=== PATIENT | female | born 1995 | race Caucasian/White ===

== ENCOUNTER 2018-02-08 15:25 | Emergency (ER) | payer SELFPAY ==
[2018-02-08] MEDS ORDERED: 0.9 % SODIUM CHLORIDE 1,000 ML IV ONE (15:52)
--- NOTE | 2018-02-08 15:52 | ED Physician Documentation ---
Abdominal Pain - HISTORIAN Historian: patient - HPI Stated Complaint: LLQ abdominal pain Chief Complaint: Flank Pain Onset: hours (3) Duration: constant Timing: still present Context: denies: out of country travel, bad food, recent trauma Severity: moderate Quality: pain, dull, cramping, sharp Associated Symptoms: chills, nausea, other (Normal BM today ). denies: fever, vomiting, diarrhea Exacerbated by: movements, walking Relieved by: nothing Further Comments: yes (She reports that she started to have LLQ pain at around 1 pm and she notes a constant sharp stabbing pain that is LLQ that wraps around to her back. she has some urinary urgency - denies any burning. No visable blood in urine. No fever she has had chills. Nausea with no vomiting) - ROS CONST: no problems GI/: denies: constipation - SOCIAL HX Smoking History: non-smoker Alcohol Use: none Drug Use: none - FAMILY HX Family History: none - PAST HX Past History: none Ischemic Bowel Risk Factors: none Surgeries/Procedures: none Immunizations: UTD - REVIEWED ASSESSMENTS Nursing Assessment Reviewed: Yes Vitals Reviewed: Yes <Irma Wayne - Last Filed: 02/08/18 16:42> - HPI Further Comments: yes - PAST HX Surgeries/Procedures: appendectomy, other (spinal fusion thoracic back) <Constantino Kohli - Last Filed: 02/08/18 19:54> - PAST HX Home Medications: Ambulatory Orders Medication Instructions Recorded NK 01/27/16 Allergies/Adverse Reactions: Allergies Allergy/AdvReac Type Severity Reaction Status Date / Time No Known Allergies Allergy Verified 02/08/18 16:10 - VITAL SIGNS Vital Signs: Vital Signs Temp Pulse Resp BP Pulse Ox 97.2 F L 80 16 125/85 100 02/08/18 15:30 02/08/18 18:33 02/08/18 18:33 02/08/18 18:33 02/08/18 15:30 Progress <Irma Wayne - Last Filed: 02/08/18 16:42> <Constantino Kohli - Last Filed: 02/08/18 19:54> - Progress Progress: 1640: discussed results and she states she is still having pain. No pain with palpation. No nausea further DG (Irma Wayne) 17:44 When reviewing patient medication history that is available on line she got 15 hydrocodone, ondansteron and cephelexin from ED provider in [place] on February 03. She denies to me that she has had any recent medical problems or that she has seen a medical provider recently. She has no primary care provider. With history of chills, hematuria, an elevated WBC count, mild CVA tenderness on the left and pain in the flank area I am concerned that she might have a UTI or possible early polynephritis. Patient will be started on Bactrim DS and was advised to get established with PCP in [place] for further follow-up Post second fentanyl dose pain was improved but not completely gone. (Constantino Kohli) - Lab Results Lab Results: Lab Results 02/08/18 02/08/18 02/08/18 15:54 15:54 15:47 WBC 16.80 K/ul H K/ul (4.00-12.00) RBC 4.98 M/ul M/ul (3.90-5.20) Hgb 16.2 g/dL H g/dL (12.0-16.0) Hct 49.0 % H % (34.5-46.5) MCV 98.0 fl fl (80.0-100.0) MCH 32.6 pg pg (28.0-34.0) MCHC 33.1 g/dL g/dL (30.0-36.0) RDW 10.7 % L % (11.3-14.3) Plt Count 357 K/mm3 K/mm3 (130-400) Neut % (Auto) 75.0 % % (39.0-79.0) Lymph % (Auto) 15.9 % L % (16.0-50.0) [place] % (Auto) 7.2 % % (0.0-11.0) Eos % (Auto) 1.1 % % (0.0-6.8) Baso % (Auto) 0.8 (0.0-1.5) Neut # (Auto) 12.6 # k/uL H # k/uL (1.4-7.7) Lymph # (Auto) 2.7 # k/uL # k/uL (0.6-4.0) Blair # (Auto) 1.2 # k/uL H # k/uL (0.0-0.9) Eos # (Auto) 0.2 # k/uL # k/uL (0.0-0.6) Baso # (Auto) 0.1 # k/uL # k/uL (0.0-0.5) Sodium 144 mmol/L mmol/L (136-145) Potassium 3.7 mmol/L mmol/L (3.5-5.1) Chloride 103 mmol/L mmol/L (98-107) Carbon Dioxide 25 mmol/L mmol/L (22-30) BUN 15 mg/dL mg/dL (7-17) Creatinine 0.60 mg/dL mg/dL (0.52-1.04) Estimated Creat Clear 313 Est GFR ( Amer) > 60 (60 - ) Est GFR (Non-Af Amer) > 60 (60 - ) Glucose 108 mg/dL H mg/dL (74-106) Calcium 8.9 mg/dL mg/dL (8.4-10.2) Total Bilirubin 1.0 mg/dL mg/dL (0.2-1.3) AST 54 U/L H U/L (15-46) ALT 58 U/L U/L (13-69) Alkaline Phosphatase 86 U/L U/L (38-126) Total Protein 8.9 g/dL H g/dL (6.3-8.2) Albumin 4.6 g/dL g/dL (3.5-5.0) Urine Color Red (YELLOW) Urine Appearance Cloudy H (CLEAR) Urine pH 5.5 (5.0 - 8.0) Ur Specific [place] >=1.030 H (1.010-1.030) Urine Protein 1+ mg/dL H mg/dL (NEGATIVE) Urine Ketones Negative mg/dL mg/dL (NEGATIVE) Urine Occult Blood 3+ H (NEGATIVE) Urine Nitrite Negative (NEGATIVE) Urine Bilirubin 1+ H (NEGATIVE) Urine Urobilinogen 0.2 Eu Eu (0.2-1.0) Ur Leukocyte Esterase Negative (NEGATIVE) Urine Glucose Negative mg/dL mg/dL (NEGATIVE) Urine HCG, Qual Negative (NEGATIVE) - Orders Orders: ED Orders Category Date Time Status IV Started NOW Care 02/08/18 15:[address] ABD & PELVIS W/O CON Stat Exams 02/08/18 Completed CBC/PLATELET/DIFF Stat Lab 02/08/18 15:54 Completed CMP Stat Lab 02/08/18 15:54 Completed UA MACRO DIP ONLY Routine Lab 02/08/18 15:47 Completed URINE CULTURE Routine Lab 02/08/18 17:41 Ordered URINE HCG Routine Lab 02/08/18 15:47 Completed 0.9 % Sodium Chloride [Normal Saline] 1,000 ml Med 02/08/18 15:52 Discontinued IV NOW Ketorolac Tromethamine [Toradol] Med 02/08/18 15:53 Discontinued 30 mg IVP NOW ONE Ondansetron HCl/Pf [Zofran 4 mg/2 ml] Med 02/08/18 15:53 Discontinued 4 mg IVP NOW ONE Sulfamethoxazole/Trimethoprim [Bactrim Ds] Med 02/08/18 17:40 Discontinued 1 each PO NOW ONE fentaNYL CITRATE/PF [Duragesic] Med 02/08/18 16:40 Discontinued 50 mcg IVP NOW ONE fentaNYL CITRATE/PF [Duragesic] Med 02/08/18 17:39 Discontinued 50 mcg IVP NOW ONE Abdominal Pain Physical Exam - Physical Exam General Appearance: alert, mild distress EENT: eye inspection normal, no signs of dehydration NECK: normal inspection RESPIRATORY: no resp distress, chest non-tender, breath sounds normal CVS: reg rate & rhythm, heart sounds normal, equal pulses ABDOMEN: soft, normal bowel sounds, no distension BACK: normal inspection, CVA tenderness (L) SKIN: warm/dry, normal color EXTREMITIES: non-tender, normal range of motion, no evidence of injury, no edema NEURO: oriented X3, CN's nml as tested, motor nml, sensation nml, mood/affect nml <Irma Wayne - Last Filed: 02/08/18 16:42> - Physical Exam ABDOMEN: tenderness (LLQ area, periumbilicl area. No masses noted. ), rebound, distended. No: guarding BACK: CVA tenderness (L) (mild) <Constantino Kohli - Last Filed: 02/08/18 19:54> - Physical Exam Vital Signs: Vital Signs Temp Pulse Resp BP Pulse Ox 97.2 F L 80 16 125/85 100 02/08/18 15:30 02/08/18 18:33 02/08/18 18:33 02/08/18 18:33 02/08/18 15:30 Discharge <Irma Wayne - Last Filed: 02/08/18 16:42> Decision to Admit: NO Date of Decison to Admit: 02/08/18 Decision Time: 17:50 <Constantino Kohli - Last Filed: 02/08/18 19:54> Clincal Impression: Abdominal pain Qualifiers: Abdominal location: left lower quadrant Qualified Code(s): R10.32 - Left lower quadrant pain Referrals: Primary Doctor,No [Primary Care Provider] - 2 Days Additional Instructions: It is important to get established with a primary care provider in your local area. Drink a lot of fluids over the next several days. Take Bactrim DS twice a day for the next 7 days. Take Diclofenac 50mg twice a day as needed for pain. If you start running a fever, have some hard chills or increasing pain to see your primary care provider or return to the ED. Condition: Stable Disposition: 01 HOME, SELF-CARE
[2018-02-08] MEDS ORDERED: KETOROLAC TROMETHAMINE 30 MG/1ML VIAL IVP ONE (15:53)
[2018-02-08] MEDS ORDERED: ONDANSETRON HCL/PF 4 MG/ 2ML VIAL IVP ONE (15:53)
[2018-02-08 16:08] LABS: BASOPHILS % 0.8 (0.0-1.5); EOSINOPHILS % 1.1 % (0.0-6.8); MEAN CORPUSCULAR HEMOGLOBIN 32.6 pg (28.0-34.0); MONOCYTES % 7.2 % (0.0-11.0); NEUTROPHILS # 12.6 # k/uL (1.4-7.7)
[2018-02-08 16:18] LABS: eGFR (Non-African) > 60
--- NOTE | 2018-02-08 16:35 | Diagnostic Imaging Report ---
RAMA PHAN [facility] [id number] [facility] [address] [place], [place]. [address] Report Submission Date: Feb 08, 2018 4:31:48 PM ESCAPEMENT MATCHER Patient Study Name: JULIETTE MIMS Date: Feb 08, 2018 4:06:52 PM ESCAPEMENT MATCHER Modality Type: CT Gender: F Description: CT ABD PELVIS W/O CO : 93 Institution: [facility] Physician: RAMA PHAN CT ABDOMEN AND PELVIS WITHOUT CONTRAST HISTORY: Severe left-sided abdominal pain with nausea. Blood in urine. TECHNIQUE: Helically acquired images were obtained from the hemidiaphragms to the pelvic floor without IV contrast using a stone protocol. FINDINGS: There is extensive multilevel posterior fusion of the visualized thoracic and upper lumbar spine. There is vacuum disc phenomenon at several levels of the thoracic spine. Multilevel small Schmorl's nodes are present. There is mild volume loss involving several vertebral bodies. These findings are most suggestive of Scheuermann's disease in this young patient. There is a small metallic appearing density near the tip of the cecum, perhaps relating to prior appendectomy. There has been a cholecystectomy. The liver, spleen, adrenal glands and pancreas appear normal. 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 The kidneys are unremarkable. There is no hydronephrosis. There are no intrarenal stones. There are no ureteral stones. The abdominal aorta is normal in caliber. Small and large bowel loops are normal in caliber. The uterus and ovaries are unremarkable. There is no free fluid in the abdomen or pelvis. There is a phlebolith in the left pelvis. Lung bases are clear. No osseous abnormalities are noted. Impression: There has been extensive multilevel posterior fusion of the visualized thoracic spine and upper lumbar spine. Findings with regard to the visualized spine are most consistent with the sequelae of Scheuermann's disease as detailed in the body of the report. Status post cholecystectomy. No renal or ureteral stones. Probable appendectomy. Please correlate with the patient's clinical history. No source for left-sided pain is identified. Electronically signed on Feb 08, 2018 4:31:48 PM ESCAPEMENT MATCHER by: Hannah GARCIA
[2018-02-08] MEDS ORDERED: fentaNYL CITRATE/PF 100 MCG/ 2ML AMP IVP ONE ×2 (16:40→17:39)
[2018-02-08 17:06] LABS: APPEARANCE,URINE CLOUDY (CLEAR); COLOR,URINE RED (YELLOW); OCCULT BLOOD,URINE 3+ (NEGATIVE); PH URINE 5.5 (5.0 - 8.0); URINE HCG NEGATIVE (NEGATIVE); UROBILINOGEN URINE 0.2 Eu (0.2-1.0)
[2018-02-08] MEDS ORDERED: SULFAMETHOXAZOLE/TRIMETHOPRIM 1 EACH TABLET PO ONE (17:40)
[2018-02-08 18:35] VITALS: BP 125/85
== END 2018-02-08 18:33 | disposition home or self-care (01) ==
LOC: ED 15:25
DX: R10.32 Left lower quadrant pain (principal); Z32.02 Encounter for pregnancy test, result negative
CPT/HCPCS: 36415; 74176; 80053; 81002; 81025; 85025; 87086; 96365; 96375; 99282; 99283; A9270; J1885; J2405; J3010; J7030; S1016